=== PATIENT | female | born 1995 | race Caucasian/White ===

== ENCOUNTER 2016-02-22 10:34 | Emergency (ER) | payer BC, OTHER ==
[~2016-02-22] VITALS: Ht 162.6 cm; Wt 56.2 kg
[2016-02-22 10:38] VITALS: TEMP 36.9; Ht 162.6 cm; Wt 56.2 kg
[2016-02-22] MEDS ORDERED: BCPILLS PO (11:28)
[2016-02-22] MEDS ORDERED: BUSP-8 PO (11:28)
[2016-02-22] MEDS ORDERED: TRAZ50TA35 PO (11:28)
[2016-02-22] MEDS ORDERED: LISD50CA4 PO (11:28)
[2016-02-22] MEDS ORDERED: DEXT10CA PO (11:28)
[2016-02-22] MEDS ORDERED: FLUO20CA35 PO (11:28)
[2016-02-22] MEDS ORDERED: ONDANSETRON 4MG OD TAB PO STA (12:18)
[2016-02-22] MEDS ORDERED: HYDROCODONE/ACETAMOPHEN 5/325MG TAB PO ONE (12:30)
--- NOTE | 2016-02-22 12:56 | DIAGNOSTIC IMAGING REPORT ---
CT SCAN OF THE CERVICAL SPINE CLINICAL HISTORY: Trauma. Fall. COMPARISON STUDY: No priors. TECHNIQUE: CT scan of the cervical spine is performed from the skull base to the upper thoracic spine. Images are reviewed in the axial, sagittal, and coronal planes. IV contrast was not administered for this examination. FINDINGS: Skeletal structures: The skeletal structures are well mineralized. There is no evidence of fracture or subluxation involving the cervical spine. Vertebral body height and alignment are maintained. There is straightening of cervical lordosis. The odontoid process and lateral masses are intact. The atlantoaxial articulation is preserved. The spinous processes appear intact. Intervertebral discs: The disc spaces are well maintained. Central canal: Widely patent. Soft tissues: The prevertebral and paraspinous soft tissues are within normal limits. Calvarium: The visualized calvarium at the skull base appears intact. Brain parenchyma: Partially visualized brain parenchyma the skull base is within normal limits. Sinuses and mastoids: The visualized paranasal sinuses are clear. The mastoid air cells are well pneumatized. Lung apices: Clear as visualized. IMPRESSION: There is no evidence of fracture or subluxation involving the cervical spine. Electronically signed by: Farhad Mccarthy M.D. 02/22/2016 12:54 PM Dictated Date/Time: 02/22/2016 12:52 PM
--- NOTE | 2016-02-22 12:59 | DIAGNOSTIC IMAGING REPORT ---
CT OF THE HEAD WITHOUT CONTRAST CLINICAL HISTORY: Fall COMPARISON STUDY: No previous studies for comparison. CT DOSE: 975.33 mGy.cm TECHNIQUE: Helical axial images of the head were obtained without IV contrast. Automated exposure control was utilized for the study. FINDINGS: No acute intracranial hemorrhage, midline shift or mass effect is present. Ventricular system is normal. The basilar cisterns are patent. There are no extra-axial collections. Mckeon-white differentiation is maintained. There is no calvarial fracture. There are a few opacified ethmoid air cells. IMPRESSION: 1. No acute intracranial findings. 2. No calvarial fracture. Electronically signed by: Armond Bella M.D. 02/22/2016 12:57 PM Dictated Date/Time: 02/22/2016 12:55 PM
[2016-02-22 13:10] VITALS: BP 124/65; PULSE 83; O2SAT 98
--- NOTE | 2016-02-22 13:14 | DIAGNOSTIC IMAGING REPORT ---
PA CHEST WITH RIGHT-SIDED RIB SERIES CLINICAL HISTORY: Fall with right-sided rib pain. FINDINGS: A PA chest radiograph with 4 additional views may right-sided rib series are obtained. No prior studies are available for comparison at the time of dictation. The cardiomediastinal silhouette is unremarkable. The lungs and pleural spaces are clear. No pneumothorax is seen. There is no radiographic evidence of right-sided rib fracture on the rib series as clinically queried. The remainder of the bony thorax is grossly intact. IMPRESSION: 1. The lungs are clear. 2. There is no radiographic evidence of right-sided rib fracture as clinically queried. Electronically signed by: Farhad Mccarthy M.D. 02/22/2016 1:12 PM Dictated Date/Time: 02/22/2016 1:10 PM
[2016-02-22] MEDS ORDERED: HYDR-5688 PO (13:38)
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
== END 2016-02-22 13:41 | disposition home or self-care (01) ==
LOC: C.EDB 10:36 → C.EDC 13:41
DX: S06.0X0A Concussion without loss of consciousness, initial encounter (principal); W00.0XXA Fall on same level due to ice and snow, initial encounter; F41.9 Anxiety disorder, unspecified; Z79.3 Long term (current) use of hormonal contraceptives; Z79.899 Other long term (current) drug therapy